=== PATIENT | male | born 1990 ===

== ENCOUNTER 2024-01-19 02:46 | Emergency (ER) | payer SELFPAY ==
[2024-01-19 02:49] VITALS: BP 158/97; PULSE 62; RESP 20; TEMP 36.7; O2SAT 98
--- NOTE | 2024-01-19 03:22 | PC.NURSE ---
Patient comes to desk to state I am leaving I can be uncomfortable at home. I'll come back if I need to. This RN informed patient that a room was being cleaned for patient and informed of risks of leaving before being seen by a provider and benefits of staying for evaluation. Patient verbalized understanding, stated I will come back if I need to and ambulated out of the ED with a steady gait with belongings in hand. Patient marked as left without being seen traiged.
== END 2024-01-19 03:35 | disposition left against medical advice (07) ==
PROVIDERS: PCP Family Medicine
DX: R10.30 Lower abdominal pain, unspecified (principal)
CPT/HCPCS: 99199

== ENCOUNTER 2024-01-22 14:49 | Outpatient (CLI) | payer OTHER, SELFPAY ==
--- NOTE | ~2024-01-22 | CT_ITS ---
Non-contrast CT scan of the Abdomen and Pelvis Clinical indication: Abdominal pain Technique: 2.5 mm axial scans were obtained through the abdomen and pelvis without intravenous or or al contrast. Dose reduction technique was used on this scan by utilizing automated exposure control a nd iterative reconstruction technique. The dose-length product (DLP) was 1162.95 mGy-cm. Findings: Images through the lung bases reveal no abnormalities. Punctate nonobstructing renal stones are noted. No ureteral stone or hydrocephalus is identified. The liver, spleen, pancreas, and adrenals appear normal. Cholecystectomy clips are present. There is no aortic aneurysm. There is no evidence of bowel obstruction. Images through the pelvis were performed. There is no evidence of ascites or lymphadenopathy. Urinary bladder unremarkable. No pelvic mass seen. Impression: Punctate bilateral nonobstructing renal stones. Reviewed, dictated and finalized at [facility]. Impression: Punctate bilateral nonobstructing renal stones.
== END 2024-01-22 14:50 | disposition home or self-care (01) ==
LOC: MICIMG 14:51
PROVIDERS: PCP Family Medicine; Visit Provider Family Medicine
DX: N20.0 Calculus of kidney (principal); R10.32 Left lower quadrant pain
CPT/HCPCS: 74176